=== PATIENT | male | born 1960 | race Caucasian/White ===

== ENCOUNTER 2024-02-25 04:24 | Inpatient (IN) | payer MEDICAID, OTHER ==
[~2024-02-25] VITALS: Ht 190.5 cm; Wt 115.2 kg
[~2024-02-25 04:24] MED LIST: AMLO1TAB23 PO; CYCL-839 PO; ENAL1TAB47 PO; MELO7.5T7 PO; TAMS0.4C39 PO
--- NOTE | 2024-02-25 04:37 | ED.PDOC ---
HPI Comments 63-year-old male brought in by EMS presents to the ED with a chief complaint of abdominal pain x 3 days. Patient states that his pain is localized to his epigastric region, non-radiating, describes as pressure/sharp. Patient denies any nausea, vomiting, or diarrhea. Patient was seen at [facility] and had elevated troponin at 0.41, however, patient denies any active chest pain. Patient was transferred to this hospital for higher level of care. Chief Complaint: Abdominal Pain Time Seen by MD: 04:35 Reviewed Notes: Medications, Allergies Allergies: Coded Allergies: Moxifloxacin (Verified Allergy, Unknown, 02/25/24) Information Source: Emergency Med Personnel Mode of Arrival: EMS Severity: Moderate Timing: Minutes Duration: Since onset Prehospital treatment: Treatment (Heparin Drip ) Past Medical History PAST MEDICAL HISTORY: Denies Surgical History: Denies all surgeries Family History Family History: Reviewed,noncontributory to illness Social History Smoker: Non-Smoker Alcohol: Denies ETOH Use Drugs: Denies Drug Use Lives In: Home Constitutional: denies: chills, diaphoresis, fatigue, fever, malaise, sweats, weakness, others EENTM: denies: blurred vision, double vision, ear bleeding, ear discharge, ear drainage, ear pain, ear ringing, eye pain, eye redness, hearing loss, mouth pain, mouth swelling, nasal discharge, nose bleeding, nose congestion, nose pain, photophobia, tearing, throat pain, throat swelling, voice changes, others Respiratory: denies: cough, hemoptysis, orthopnea, SOB at rest, shortness of breath, SOB with excertion, stridor, wheezing, others Cardiovascular: denies: chest pain, dizzy spells, diaphoresis, Dyspnea on exertion, edema, irregular heart beat, left arm pain, lightheadedness, palpitations, PND, syncope, others Gastrointestinal: reports: abdominal pain; denies: abdomen distended, blood streaked bowels, constipated, diarrhea, dysphagia, difficulty swallowing, hematemesis, melena, nausea, poor appetite, poor fluid intake, rectal bleeding, rectal pain, vomiting, others Genitourinary: denies: burning, dysuria, flank pain, frequency, hematuria, incontinence, penile discharge, penile sore, pain, testicle pain, testicle swelling, urgency, others Neurological: denies: dizziness, fainting, headache, left sided numbness, left sided weakness, numbness, paresthesia, pre-existing deficit, right sided numbness, right sided weakness, seizure, speech problems, tingling, tremors, wea kness, others Musculoskeletal: denies: back pain, gout, joint pain, joint swelling, muscle pain, muscle stiffness, neck pain, others Integumetry: denies: bruises, change in color, change in hair/nails, dryness, l aceration, lesions, lumps, rash, wounds, others Allergic/Immunocompromised: denies: Difficulty Healing, Frequent Infections, Hives, Itching, others Hematologic/Lymphatic: denies: anemia, blood clots, easy bleeding, easy bruising, swollen glands, others Endocrine: denies: excessive hunger, excessive sweating, excessive thirst, excessive urination, flushing, intolerance to cold, intolerance to heat, unexplained weight gain, unexplained weight loss, others Psychiatric: denies: anxiety, bipolar disorder, depression, hopeless, panic disorder, schizophrenia, sleepless, suicidal, others All Other Systems: Reviewed and Negative Physical Exam General Appearance: Moderate Distress, Normal HEENT: Normal ENT Inspection, Pharynx Normal, TMs Normal Neck: Full Range of Motion, Non-Tender, Normal, Normal Inspection Respiratory: Chest Non-Tender, Lungs Clear, No Accessory Muscle Use, No Respiratory Distress, Normal Breath Sounds Cardiovascular: No Edema, No JVD, No Murmur, No Gallop, Normal Peripheral Pulses, Regular Rate/Rhythm Breast Exam: Deferred Gastrointestinal: No Organomegaly, Non Tender, No Pulsatile Mass, Normal Bowel Sounds, Soft Genitalia: Deferred Pelvic: Deferred Rectal: Deferred Extremities: No calf tenderness, Normal capillary refill, Normal inspection, Normal range of motion, Non-tender, No pedal edema Musculoskeletal : Apperance: Normal Neurologic: Alert, surgical supply assistant II-XII nml as Tested, No Motor Deficits, Normal Affect, Normal Mood, No Sensory Deficits Cerebellar Function: Normal Reflexes: Normal Skin: Dry, Normal Color, Warm Lymphatic: No Adenopathy Was a procedure done? Was a procedure done?: No CP Differential Dx Differential Diagnosis: A-fib, Angina, Electrolyte Disorder, Heart Failure, MAT, OH, Sinus Tachycardia, V-Fib X-Ray, Labs, Meds, VS Vital Signs Date Time Temp Pulse Resp B/P (MAP) Pulse Ox O2 Delivery O2 Flow Rate FiO2 02/25/24 04:31 98.3 95 16 130/95 (107) 94 02/25/24 04:30 100 Troponin from [facility] was 0.3 and 0.4. The patient was placed on heparin drip and transferred to our hospital by Mulu Clemente, nurse practitioner. She will be admitted to our hospital for further evaluation and care. Time of 1ST Reevaluation: 05:05 Reevaluation 1ST: Unchanged Patient Education/Counseling: Diagnosis, Treatment, Prognosis Family Education/Counseling: No Family Present Departure 1 Departure Time of Disposition: 04:52 Impression: Primary Impression: Non-STEMI (non-ST elevated myocardial infarction) Disposition: ADMITTED INPATIENT Admit to: [facility] Condition: Guarded Critical Care Note Critical Care Time?: Yes (35 min-critical care time only) Stability Stability form required: No Heart Score Heart Score: Heart Score Response (Comments) Value History Highly Suspicious 2 EKG N/A 0 Age 45-64 1 Risk Factors >3 or Hx ASHD 2 Troponin >3 x's Normal limit 2 Total 7 I personally scribed for BENJI FARRIS MD ([email or web address]) on 02/25/24 at 04:37. Electronically submitted by Dimitris Elias ([email or web address]). I personally scribed for BENJI FARRIS MD ([email or web address]) on 02/25/24 at 04:50. Electronically submitted by Dimitris Elias ([email or web address]). BENJI FARRIS MD Feb 25, 2024 04:37
[2024-02-25] MEDS ORDERED: MORPHINE SULFATE 4 MG/ML SYR/VIAL IV ONE (05:00)
[2024-02-25] MEDS: ONDANSETRON HCL 4 MG/2 ML VIAL IV ONE (05:14)
[2024-02-25] MEDS: fentaNYL CITRATE 100 MCG/2 ML VL IV ONE (05:15)
[2024-02-25 05:38] LABS: Basophils # (auto) 0 10 ^3/uL (0-0.2); Basophils % (auto) 0.2 % (0.0-2.0); Eosinophils # (auto) 0.1 10 ^3/uL (0-0.8); Eosinophils % (auto) 0.8 % (0.0-7.0); Hematocrit 44.2 % (41.0-53.0); Hemoglobin 14.9 g/dL (13.5-17.5); Lymphocytes # (auto) 2.3 10 ^3/uL (0.4-5.4); Lymphocytes % (auto) 21.9 % (10.0-50.0); Mean Corpuscular Hemoglobin 32.8 pg (28.0-32.0); Mean Corpuscular Hgb Conc. 33.8 g/dL (32.0-36.0); Monocytes # (auto) 1.2 10 ^3/uL (0-1.3); Monocytes % (auto) 11.3 % (0.0-12.0); Neutrophils # (auto) 6.9 10 ^3/uL (1.6-8.6); Neutrophils % (auto) 65.8 % (37.0-80.0); Platelet Count (auto) 216 10^3/uL (140-450); Red Blood Cells 4.56 10^6/uL (4.5-5.90); White Blood Cell 10.5 10^3/uL (4.4-10.8)
[2024-02-25 05:57] LABS: Alanine Aminotransferase 50 U/L (7-40); Alkaline Phosphatase 43 U/L (46-116); Anion Gap 9 (5-15); Aspartate Aminotransferase 28 U/L (13-40); BUN/Creatinine Ratio 13.3 (10.0-20.0); Blood Urea Nitrogen 12 mg/dL (9-23); Calcium 8.7 mg/dL (8.7-10.4); Carbon Dioxide 21 mmol/L (20-31); Chloride 109 mmol/L (98-107); Glucose 121 mg/dL (74-106); Magnesium 1.9 mg/dL (1.6-2.6); Potassium 3.8 mmol/L (3.5-5.1); Sodium 139 mmol/L (136-145)
--- NOTE | 2024-02-25 05:57 | DVH ---
CHEST RADIOGRAPH Indication:nstemi Technique: Single frontal view of the chest was obtained COMPARISON: None FINDINGS: Lines and Tubes: None Lungs: Mild congestion Pleura: No effusion. No pneumothorax. Cardiomediastinal contours: Cardiomegaly Bones: Unremarkable IMPRESSION: Mild congestion
[2024-02-25 05:58] LABS: Bilirubin, Total 0.5 mg/dL (0.2-1.0); Total Protein 6.1 g/dL (5.7-8.2)
[2024-02-25] MEDS ORDERED: NITROGLYCERIN 0.4 MG SL TAB SL PRN (06:00)
[2024-02-25] MEDS ORDERED: HEPARIN SODIUM (PORCINE) 5000 UNITS/ML 1ML VIAL IV ONE (06:00)
[2024-02-25] MEDS ORDERED: ONDANSETRON HCL 4 MG/2 ML VIAL IV PRN (06:00)
[2024-02-25] MEDS ORDERED: HYDROcodone-ACET 5/325MG TAB PO PRN (06:00)
[2024-02-25] MEDS ORDERED: MORPHINE SULFATE INJ 2 MG/ml SYRG IV PRN (06:00)
[2024-02-25 06:08] LABS: INR 1.11 (0.9-1.15); Partial Thromboplastin Time 63.7 SEC (24.5-34.5); Prothrombin Time 11.7 sec (9.3-11.8)
--- NOTE | 2024-02-25 06:09 | PRN ---
Misceleneous Note Note Note Mr. Hank Garcia [place] ED [place] [facility] [place] [facility] [place], CT abdomen and pelvis with no evidence of acute abnormality, mild distal colonic diverticulosis, mild hepatomegaly with hepatic steatosis, mild prostomegaly. Patient with Troponin levels of 0.300, 0.410 with epigastric pain radiating to back and abdomen. Patient started on Heparin drip per [facility] pharmacy protocol , ASA, Statin , [place] [facility] [place] GABY BECKFORD MERCHANDISER SEASONAL Feb 25, 2024 06:09
[2024-02-25] MEDS: HEPARIN DRIP/D5W 100UNITS/ML 250 ML IV SCH (06:53)
--- NOTE | 2024-02-25 07:48 | DVH ---
ULTRASOUND ABDOMEN COMPLETE INDICATION: Pain. TECHNIQUE: Multiple real-time sonographic images of the abdomen were obtained. COMPARISON: None FINDINGS: The visualized liver parenchyma appears diffusely echogenic consistent with steatosis. . The liver measures 21.3 cm. No discrete hepatic lesion or intrahepatic biliary ductal dilatation is ident ified. There is no evidence of gallstones, gallbladder wall thickening or pericholecystic fluid. The common biliary duct is not dilated. The right kidney measures 11.4 cm length. The left kidney measures 11.5 cm. There is a 1.5 cm right upper pole renal cysts. No sonographic evidence of nephrolithiasis or hydronephrosis. The spleen measures 11.1 cm and appears within normal limits. Abdominal aorta, IVC and Pancreas are obscured by bowel gas. IMPRESSION: 1. Hepatic steatosis. 2. 1.5 cm right upper pole renal cyst. HS:Y
[2024-02-25 08:00] VITALS: PULSE 91; RESP 20; O2SAT 94
--- NOTE | 2024-02-25 09:02 | ECG ---
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
[2024-02-25 09:25] LABS: Urine Bacteria None Seen /hpf (None Seen)
[2024-02-25] MEDS: SODIUM CHLORIDE 0.9% 1,000 ML IV ONE (09:29)
[2024-02-25 09:34] LABS: Urine Blood Negative /uL (Negative); Urine Budding Yeast OCCASIONAL /hpf (None Seen); Urine Clarity Clear (Clear); Urine Color Yellow (Yellow); Urine Mucus FEW (None Seen); Urine Protein, UAD TRACE (Negative); Urine Urobilinogen Normal (Negative); Urine WBC 1 /hpf (0 - 3); Urine pH 5.5 (5.0-9.0)
[2024-02-25 09:37] LABS: Magnesium 2.1 mg/dL (1.6-2.6)
[2024-02-25 09:38] LABS: Phosphorus 2.6 mg/dL (2.4-5.1)
[2024-02-25 09:46] LABS: Amphetamine Screen, Urine Neg (NEGATIVE); Barbiturate Scree,Urine Neg (NEGATIVE); Benzodiazephine Screen, Urine Neg (NEGATIVE); Cannabinoid Screen, Urine Neg (NEGATIVE); Cocaine Screen, Urine Neg (NEGATIVE); Opiate Scree,Urine Pos (NEGATIVE)
[2024-02-25 09:47] LABS: Phencyclidine Screen, Urine Neg (NEGATIVE)
[2024-02-25] MEDS: PANTOPRAZOLE 40 MG/10 ML VIAL INJ IV SCH ×2 (10:44→21:14)
[2024-02-25] MEDS: ASPirin-EC 81 mg tab PO SCH (10:44)
--- NOTE | 2024-02-25 12:02 | DVHINCON2 ---
GI Consult Consult Note GI consult note Date of Consultation: 02/25/2024 Chief Complaint: Abdominal pain Referring Physician: Bryn DELGADO H&P: 63-year-old male transferred from [facility] for higher level of care for non-STEMI Patient also complaining of epigastric abdominal pain, for last four days, worse after eating certain foods No nausea. Or vomiting no hematemesis. No history of GERD symptoms Patient complains of loose stool, on Friday and Friday about 6-7 episodes. Brown in color. No melena or red blood in stool No EGD or colonoscopy in past Patient CT 02/24/2024 shows mild diverticulosis, and hepatic steatosis. Done at [facility] Patient is on aspirin now Patient is being evaluated by Cardiology Past Medical History: Denies Past Surgical History: Denies Social History: NO smoking, drinking ETOH and use of illegal drugs. Family History: Noncontributory Review of Systems: Constitutional: no fever, chill, weight loss HEENT: no eye pain, no hearing loss, no oral lesion, no scleral icterus Heart: no chest pain, no chest pressure Lung: no cough, no dyspnea with exertion Abdomen: see HPI Physical exam: General: NAD, AAOX3 Chest: lung donaldson clear to auscultation Heart: RRR, no murmur Abdomen: + epigastric tenderness to palpation, +BS Labs: Labs Test 02/25/24 09:13 02/25/24 09:00 02/25/24 08:12 02/25/24 05:08 Range/Units Lactic Acid Level 1.4 0.4-2.0 mmol/L Urine Color Yellow Yellow Urine Clarity Clear Clear Urine pH 5.5 5.0-9.0 Urine Specific [place] 1.050 H 1.001-1.035 Urine Protein Trace H Negative Urine Ketones Negative Negative Urine Blood Negative Negative /uL Urine Nitrite Negative Negative Urine Bilirubin Negative Negative Urine Urobilinogen Normal Negative mg/dL Urine Leukocyte Esterase Negative Negative /uL Urine RBC 2 0 - 3 /hpf Urine WBC 1 0 - 3 /hpf Urine Squamous Epithelial Cells Few <5 /hpf Urine Bacteria None seen None Seen /hpf Urine Mucus Few None Seen Urine Yeast (Budding) Occasional None Seen /hpf Urine Glucose Normal Normal mg/dL Urine Opiates Screen Pos NEGATIVE Urine Fentanyl Screen Pos NEGATIVE Urine Barbiturates Screen Neg NEGATIVE Urine Phencyclidine Screen Neg NEGATIVE Urine Amphetamines Screen Neg NEGATIVE Urine Benzodiazepines Screen Neg NEGATIVE Urine Cocaine Screen Neg NEGATIVE Urine Cannabinoids Screen Neg NEGATIVE Phosphorus Level 2.6 2.4-5.1 mg/dL Magnesium Level 2.1 1.6-2.6 mg/dL Troponin I High Sensitivity 660 *H </=54 ng/L Triglycerides Level 107 < 150 mg/dL Cholesterol Level 102 < 200 mg/dL LDL Cholesterol 50 < 100 mg/dL HDL Cholesterol 42 40-59 mg/dL Thyroid Stimulating Hormone (TSH) 2.12 0.55-4.78 uIU/mL White Blood Count 10.5 4.4-10.8 10^3/uL Red Blood Count 4.56 4.5-5.90 10^6/uL Hemoglobin 14.9 13.5-17.5 g/dL Hematocrit 44.2 41.0-53.0 % Mean Corpuscular Volume 97.0 80.0-100.0 fL Mean Corpuscular Hemoglobin 32.8 H 28.0-32.0 pg Mean Corpuscular Hemoglobin Concent 33.8 32.0-36.0 g/dL Red Cell Distribution Width 14.0 11.8-14.3 % Platelet Count 216 140-450 10^3/uL Mean Platelet Volume 7.5 6.9-10.8 fL Neutrophils (%) (Auto) 65.8 37.0-80.0 % Lymphocytes (%) (Auto) 21.9 10.0-50.0 % Monocytes (%) (Auto) 11.3 0.0-12.0 % Eosinophils (%) (Auto) 0.8 0.0-7.0 % Basophils (%) (Auto) 0.2 0.0-2.0 % Neutrophils # (Auto) 6.9 1.6-8.6 10 ^3/uL Lymphocytes # (Auto) 2.3 0.4-5.4 10 ^3/uL Monocytes # (Auto) 1.2 0-1.3 10 ^3/uL Eosinophils # (Auto) 0.1 0-0.8 10 ^3/uL Basophils # (Auto) 0 0-0.2 10 ^3/uL Nucleated Red Blood Cells 0.0 % Prothrombin Time 11.7 9.3-11.8 sec Prothrombin Time INR 1.11 0.9-1.15 Activated Partial Thromboplast Time 63.7 H 24.5-34.5 SEC Sodium Level 139 136-145 mmol/L Potassium Level 3.8 3.5-5.1 mmol/L Chloride Level 109 H 98-107 mmol/L Carbon Dioxide Level 21 20-31 mmol/L Anion Gap 9 5-15 Blood Urea Nitrogen 12 9-23 mg/dL Creatinine 0.90 0.700-1.30 mg/dL Glomerular Filtration Rate Calc 97 >90 mL/min BUN/Creatinine Ratio 13.3 10.0-20.0 Serum Glucose 121 H 74-106 mg/dL Hemoglobin A1c 5.9 H <5.7 % A1C Calcium Level 8.7 8.7-10.4 mg/dL Total Bilirubin 0.5 0.2-1.0 mg/dL Aspartate Amino Transferase (AST) 28 13-40 U/L Alanine Aminotransferase (ALT) 50 H 7-40 U/L Alkaline Phosphatase 43 L 46-116 U/L B-Type Natriuretic Peptide 33.52 0-100 pg/mL Total Protein 6.1 5.7-8.2 g/dL Albumin 4.0 3.2-4.8 g/dL Lipase 32 12-53 U/L Vitamin B12 Level 750 211-911 pg/mL Vitamin D 25-Hydroxy 55.1 30.0-100 ng/mL Imaging: Abdominal ultrasound IMPRESSION: 1. Hepatic steatosis. 2. 1.5 cm right upper pole renal cyst. Assessment: NSTEMI Abdominal pain Diarrhea Hepatic steatosis Plan: Discussed with Dr. Burdick Patient undergoing cardiac evaluation Protonix and Carafate Clear liquid diet Stool for WBC, bacterial culture and C diff We will continue to monitor this patient Discussed plan with patient and RN Thank you for this consult Date of Service: Feb 25, 2024 Billing Provider: DELORES MARTE Common Visit Codes: CONSULT ONLY Consultation Codes: [id number] CONSULT <60MIN DELORES MARTE Feb 25, 2024 12:02
[2024-02-25 12:38] LABS: Triglycerides 89 mg/dL (< 150)
[2024-02-25 12:39] LABS: LDL Cholesterol 58 mg/dL (< 100)
[2024-02-25 12:40] LABS: Cholesterol 111 mg/dL (< 200); HDL Cholesterol 44 mg/dL (40-59)
--- NOTE | 2024-02-25 12:57 | DVHHP2 ---
History of Present Illness Reason for Visit: Epigastric/lower abdominal discomfort History of Present Illness This is a 63-year-old gentleman with a hypertensive heart disease came to [facility] Friday with complaints of right-sided abdominal pain. Described as as mainly in the epigastric/right upper quadrant region. Patient was apparently what he thinks ate some "bad" food on Friday. Friday he had some discomfort intermittently and yesterday he has pain was more constant therefore came to ER for further evaluation. In the ER patient was CT abdomen pelvis showed diverticulosis without any acute pathology. However he is cardiac markers troponin the elevated significantly. Therefore he was transferred to [facility] for cardiac evaluation and further management as appropriate. Currently patient indeed has a pain-free. Patient denied any associated nausea vomiting headache dizziness or lightheadedness. Denied any diarrhea or blood in stool. All other review of system to be normal. Cardiovascular: HTN Past Medical History Hypertension, obesity Past Surgical History: None Family History: Hypertension Smoke: No ALCOHOL: occassional Lives: with Family Review of Systems Review of Systems No shortness of breath no sweating headache dizziness or lightheadedness. No fevers chills or sweats. Normal bowel and bladder movements. Other review of system reviewed all normal. Allergies: Coded Allergies: Moxifloxacin (Verified Allergy, Unknown, 02/25/24) Medications Current Medications Medications Dose Ordered Sig/Boaz Route Start Time Stop Time Status Last Admin Dose Admin Aspirin 81 mg DAILY PO 02/25/24 10:00 02/25/24 10:44 81 MG Atorvastatin Calcium 40 mg HS PO 02/25/24 22:00 Acetaminophen/ Hydrocodone Bitart 1 tab Q6HPRN PRN PO 02/25/24 06:00 Acetaminophen 650 mg Q6HPRN PRN PO 02/25/24 06:00 Ondansetron HCl 4 mg Q6HPRN PRN IV 02/25/24 06:00 Nitroglycerin 0.4 mg Q5MINP PRN SL 02/25/24 06:00 Morphine Sulfate 2 mg Q30M PRN IV 02/25/24 06:00 Pantoprazole Sodium 40 mg BID IV 02/25/24 22:00 Sucralfate 1 gm BID@0600,2200 PO 02/25/24 22:00 Exam Vital Signs Vital Signs Date Time Temp Pulse Resp B/P (MAP) Pulse Ox O2 Delivery O2 Flow Rate FiO2 02/25/24 12:00 107 17 130/94 (106) 92 02/25/24 08:00 99.4 99.4 02/25/24 08:00 Room Air* 0 21 Exam Alert awake oriented x3. Comfortable in bed without any acute cardiopulmonary distress at present. HEENT neck supple no JVD pupils equal round react to light. Heart normal heart sounds regular rate and rhythm S1 plus S2. No audible murmurs or gallops. Lungs failure movement throughout the lung zones. Chest equal to expansion. No rales or wheezing. Abdomen is obese. Positive active bowel sounds. Nontender. No rebound or guarding. Extremities positive distal pedal pulses. No edema. Neurologically no focal deficits. Labs/Xrays Labs Test 02/25/24 09:13 02/25/24 09:00 02/25/24 08:12 02/25/24 05:08 Range/Units Lactic Acid Level 1.4 0.4-2.0 mmol/L Urine Color Yellow Yellow Urine Clarity Clear Clear Urine pH 5.5 5.0-9.0 Urine Specific [place] 1.050 H 1.001-1.035 Urine Protein Trace H Negative Urine Ketones Negative Negative Urine Blood Negative Negative /uL Urine Nitrite Negative Negative Urine Bilirubin Negative Negative Urine Urobilinogen Normal Negative mg/dL Urine Leukocyte Esterase Negative Negative /uL Urine RBC 2 0 - 3 /hpf Urine WBC 1 0 - 3 /hpf Urine Squamous Epithelial Cells Few <5 /hpf Urine Bacteria None seen None Seen /hpf Urine Mucus Few None Seen Urine Yeast (Budding) Occasional None Seen /hpf Urine Glucose Normal Normal mg/dL Urine Opiates Screen Pos NEGATIVE Urine Fentanyl Screen Pos NEGATIVE Urine Barbiturates Screen Neg NEGATIVE Urine Phencyclidine Screen Neg NEGATIVE Urine Amphetamines Screen Neg NEGATIVE Urine Benzodiazepines Screen Neg NEGATIVE Urine Cocaine Screen Neg NEGATIVE Urine Cannabinoids Screen Neg NEGATIVE Phosphorus Level 2.6 2.4-5.1 mg/dL Magnesium Level 2.1 1.6-2.6 mg/dL Troponin I High Sensitivity 660 *H </=54 ng/L Triglycerides Level 89 < 150 mg/dL Cholesterol Level 111 < 200 mg/dL LDL Cholesterol 58 < 100 mg/dL HDL Cholesterol 44 40-59 mg/dL Thyroid Stimulating Hormone (TSH) 2.12 0.55-4.78 uIU/mL White Blood Count 10.5 4.4-10.8 10^3/uL Red Blood Count 4.56 4.5-5.90 10^6/uL Hemoglobin 14.9 13.5-17.5 g/dL Hematocrit 44.2 41.0-53.0 % Mean Corpuscular Volume 97.0 80.0-100.0 fL Mean Corpuscular Hemoglobin 32.8 H 28.0-32.0 pg Mean Corpuscular Hemoglobin Concent 33.8 32.0-36.0 g/dL Red Cell Distribution Width 14.0 11.8-14.3 % Platelet Count 216 140-450 10^3/uL Mean Platelet Volume 7.5 6.9-10.8 fL Neutrophils (%) (Auto) 65.8 37.0-80.0 % Lymphocytes (%) (Auto) 21.9 10.0-50.0 % Monocytes (%) (Auto) 11.3 0.0-12.0 % Eosinophils (%) (Auto) 0.8 0.0-7.0 % Basophils (%) (Auto) 0.2 0.0-2.0 % Neutrophils # (Auto) 6.9 1.6-8.6 10 ^3/uL Lymphocytes # (Auto) 2.3 0.4-5.4 10 ^3/uL Monocytes # (Auto) 1.2 0-1.3 10 ^3/uL Eosinophils # (Auto) 0.1 0-0.8 10 ^3/uL Basophils # (Auto) 0 0-0.2 10 ^3/uL Nucleated Red Blood Cells 0.0 % Prothrombin Time 11.7 9.3-11.8 sec Prothrombin Time INR 1.11 0.9-1.15 Activated Partial Thromboplast Time 63.7 H 24.5-34.5 SEC Sodium Level 139 136-145 mmol/L Potassium Level 3.8 3.5-5.1 mmol/L Chloride Level 109 H 98-107 mmol/L Carbon Dioxide Level 21 20-31 mmol/L Anion Gap 9 5-15 Blood Urea Nitrogen 12 9-23 mg/dL Creatinine 0.90 0.700-1.30 mg/dL Glomerular Filtration Rate Calc 97 >90 mL/min BUN/Creatinine Ratio 13.3 10.0-20.0 Serum Glucose 121 H 74-106 mg/dL Hemoglobin A1c 5.9 H <5.7 % A1C Calcium Level 8.7 8.7-10.4 mg/dL Total Bilirubin 0.5 0.2-1.0 mg/dL Aspartate Amino Transferase (AST) 28 13-40 U/L Alanine Aminotransferase (ALT) 50 H 7-40 U/L Alkaline Phosphatase 43 L 46-116 U/L B-Type Natriuretic Peptide 33.52 0-100 pg/mL Total Protein 6.1 5.7-8.2 g/dL Albumin 4.0 3.2-4.8 g/dL Lipase 32 12-53 U/L Vitamin B12 Level 750 211-911 pg/mL Vitamin D 25-Hydroxy 55.1 30.0-100 ng/mL Assessment/Plan Assessment/Plan Epigastric/abdominal pain Elevated troponin possible non ST elevation [place] Hypertension Morbid obesity BMI 33 At resident patient was clinically stable. We will admit him to the hospital for cardiac evaluation. EKG does not show any acute ST-T changes. So far labs besides troponins are normal. Check his A1c levels and lipid panel. Resume his blood pressure medications. Clear liquid diet. GI consultation as well. 2D echocardiogram. Aspirin and started. Continue rest of supportive care and treatment as appropriate/has not needed. He clinical management will depend on his clinical course and recommendations from the consultants. Discussed with the patient at bedside regarding care plan. Plan discussed with: Patient, Other My Orders Orders - ELO MALLOY MD Procedure Category Date Status Time Basic Metabolic Panel LAB 02/26/24 Verified 04:00 Troponin-I Hs LAB 02/26/24 Verified 04:00 Troponin-I Hs LAB 02/25/24 Logged 15:17 * Cardiology Consult CONS 02/25/24 Transmitted 12:34 Enoxaparin Sodium PHA 02/26/24 Verified (Lovenox) 10:00 Problem List: (1) Non-STEMI (non-ST elevated myocardial infarction) ELO MALLOY MD Feb 25, 2024 12:57
--- NOTE | 2024-02-25 13:11 | DVHINCON2 ---
Allergies: Coded Allergies: Moxifloxacin (Verified Allergy, Unknown, 02/25/24) Current Medications Current Medications Medications (Trade) Dose Ordered Sig/Boaz Route PRN Reason Start Time Stop Time Status Last Admin Heparin Sodium/ Dextrose 250 ml @ 10 mls/hr Q24H IV 02/25/24 06:00 02/25/24 10:26 DC 02/25/24 06:53 Aspirin (Ecotrin Enteric Coated Tablet) 81 mg DAILY PO 02/25/24 10:00 02/25/24 10:44 Atorvastatin Calcium (Lipitor) 40 mg HS PO 02/25/24 22:00 Acetaminophen/ Hydrocodone Bitart ([place] 5/325MG Tab) 1 tab Q6HPRN PRN PO PAIN SCALE 1 THRU 6 02/25/24 06:00 Acetaminophen (Tylenol Tablet) 650 mg Q6HPRN PRN PO TEMP GREATER THAN 100.4 02/25/24 06:00 Pantoprazole Sodium (Protonix) 40 mg DAILY IV 02/25/24 10:00 02/25/24 11:21 DC 02/25/24 10:44 Ondansetron HCl (Zofran) 4 mg Q6HPRN PRN IV NAUSEA / VOMITING 02/25/24 06:00 Nitroglycerin (Ntrostat Sublingual) 0.4 mg Q5MINP PRN SL FOR CHEST PAIN 02/25/24 06:00 Morphine Sulfate 2 mg Q30M PRN IV FOR CHEST PAIN 02/25/24 06:00 Pantoprazole Sodium (Protonix) 40 mg BID IV 02/25/24 22:00 Sucralfate (Carafate Susp) 1 gm BID@0600,2200 PO 02/25/24 22:00 Enoxaparin Sodium (Lovenox) 40 mg DAILY SC 02/26/24 10:00 Amlodipine Besylate (Norvasc Tablet) 10 mg DAILY PO 02/26/24 10:00 UNV Vital Signs Vital Signs Date Time Temp Pulse Resp B/P (MAP) Pulse Ox O2 Delivery O2 Flow Rate FiO2 02/25/24 12:00 94 02/25/24 12:00 17 130/94 (106) 92 02/25/24 08:00 99.4 99.4 02/25/24 08:00 Room Air* 0 21 Labs/Diagnostic Data Labs Test 02/25/24 09:13 02/25/24 09:00 02/25/24 08:12 02/25/24 05:08 Range/Units Lactic Acid Level 1.4 0.4-2.0 mmol/L Urine Color Yellow Yellow Urine Clarity Clear Clear Urine pH 5.5 5.0-9.[address] 1.050 H 1.001-1.035 Urine Protein Trace H Negative Urine Ketones Negative Negative Urine Blood Negative Negative /uL Urine Nitrite Negative Negative Urine Bilirubin Negative Negative Urine Urobilinogen Normal Negative mg/dL Urine Leukocyte Esterase Negative Negative /uL Urine RBC 2 0 - 3 /hpf Urine WBC 1 0 - 3 /hpf Urine Squamous Epithelial Cells Few <5 /hpf Urine Bacteria None seen None Seen /hpf Urine Mucus Few None Seen Urine Yeast (Budding) Occasional None Seen /hpf Urine Glucose Normal Normal mg/dL Urine Opiates Screen Pos NEGATIVE Urine Fentanyl Screen Pos NEGATIVE Urine Barbiturates Screen Neg NEGATIVE Urine Phencyclidine Screen Neg NEGATIVE Urine Amphetamines Screen Neg NEGATIVE Urine Benzodiazepines Screen Neg NEGATIVE Urine Cocaine Screen Neg NEGATIVE Urine Cannabinoids Screen Neg NEGATIVE Phosphorus Level 2.6 2.4-5.1 mg/dL Magnesium Level 2.1 1.6-2.6 mg/dL Troponin I High Sensitivity 660 *H </=54 ng/L Triglycerides Level 89 < 150 mg/dL Cholesterol Level 111 < 200 mg/dL LDL Cholesterol 58 < 100 mg/dL HDL Cholesterol 44 40-59 mg/dL Thyroid Stimulating Hormone (TSH) 2.12 0.55-4.78 uIU/mL White Blood Count 10.5 4.4-10.8 10^3/uL Red Blood Count 4.56 4.5-5.90 10^6/uL Hemoglobin 14.9 13.5-17.5 g/dL Hematocrit 44.2 41.0-53.0 % Mean Corpuscular Volume 97.0 80.0-100.0 fL Mean Corpuscular Hemoglobin 32.8 H 28.0-32.0 pg Mean Corpuscular Hemoglobin Concent 33.8 32.0-36.0 g/dL Red Cell Distribution Width 14.0 11.8-14.3 % Platelet Count 216 140-450 10^3/uL Mean Platelet Volume 7.5 6.9-10.8 fL Neutrophils (%) (Auto) 65.8 37.0-80.0 % Lymphocytes (%) (Auto) 21.9 10.0-50.0 % Monocytes (%) (Auto) 11.3 0.0-12.0 % Eosinophils (%) (Auto) 0.8 0.0-7.0 % Basophils (%) (Auto) 0.2 0.0-2.0 % Neutrophils # (Auto) 6.9 1.6-8.6 10 ^3/uL Lymphocytes # (Auto) 2.3 0.4-5.4 10 ^3/uL Monocytes # (Auto) 1.2 0-1.3 10 ^3/uL Eosinophils # (Auto) 0.1 0-0.8 10 ^3/uL Basophils # (Auto) 0 0-0.2 10 ^3/uL Nucleated Red Blood Cells 0.0 % Prothrombin Time 11.7 9.3-11.8 sec Prothrombin Time INR 1.11 0.9-1.15 Activated Partial Thromboplast Time 63.7 H 24.5-34.5 SEC Sodium Level 139 136-145 mmol/L Potassium Level 3.8 3.5-5.1 mmol/L Chloride Level 109 H 98-107 mmol/L Carbon Dioxide Level 21 20-31 mmol/L Anion Gap 9 5-15 Blood Urea Nitrogen 12 9-23 mg/dL Creatinine 0.90 0.700-1.30 mg/dL Glomerular Filtration Rate Calc 97 >90 mL/min BUN/Creatinine Ratio 13.3 10.0-20.0 Serum Glucose 121 H 74-106 mg/dL Hemoglobin A1c 5.9 H <5.7 % A1C Calcium Level 8.7 8.7-10.4 mg/dL Total Bilirubin 0.5 0.2-1.0 mg/dL Aspartate Amino Transferase (AST) 28 13-40 U/L Alanine Aminotransferase (ALT) 50 H 7-40 U/L Alkaline Phosphatase 43 L 46-116 U/L B-Type Natriuretic Peptide 33.52 0-100 pg/mL Total Protein 6.1 5.7-8.2 g/dL Albumin 4.0 3.2-4.8 g/dL Lipase 32 12-53 U/L Vitamin B12 Level 750 211-911 pg/mL Vitamin D 25-Hydroxy 55.1 30.0-100 ng/mL PATRICIA LEGGETT MD Feb 25, 2024 13:11
[2024-02-25] MEDS: amLODIPine BESYLATE 5 MG TAB PO ONE (13:31)
[2024-02-25 17:59] VITALS: BP 132/78; PULSE 80; RESP 18; TEMP 98.2; O2SAT 98
[2024-02-25 20:00] VITALS: PULSE 96
[2024-02-25 21:00] VITALS: BP 123/69; PULSE 91; RESP 17; TEMP 98.5; O2SAT 96
[2024-02-25] MEDS: ATORVASTATIN 20 MG TAB PO SCH (21:15)
[2024-02-25] MEDS: SUCRALFATE 1 GM/10 ML ORAL SUSP PO SCH (21:16)
[2024-02-26] VITALS (7 sets, daily range): BP systolic 111–143; BP diastolic 74–91; PULSE 62–105; RESP 17–20; TEMP 97.8–98.6; O2SAT 94–98
[2024-02-26 05:26] LABS: Chloride 109 mmol/L (98-107); Sodium 141 mmol/L (136-145)
[2024-02-26 05:27] LABS: Anion Gap 9 (5-15); Carbon Dioxide 23 mmol/L (20-31)
[2024-02-26 05:32] LABS: BUN/Creatinine Ratio 10.1 (10.0-20.0); Blood Urea Nitrogen 9 mg/dL (9-23); Glucose 112 mg/dL (74-106)
[2024-02-26] MEDS: ENOXAPARIN SOD 40 MG/0.4 ML SYRINGE SC SCH (10:00)
[2024-02-26] MEDS: amLODIPine BESYLATE 5 MG TAB PO SCH (10:00)
--- NOTE | 2024-02-26 10:08 | DVHSR ---
APPROVED REPORT EXAM: Two-dimensional and M-mode echocardiogram with Doppler and color Doppler. Blood Pressure: 129/87 mmHg INDICATION Elevated Trops RISK FACTORS Height: 73, Weight: 250 DIMENSIONS LVDd4.5 (3.8-5.7cm)LA (2D) (1.9-4.0cm)Aortic Root4.0 (2.0-3.7cm) LVDs3.5 (2.5-4.0cm)LA (MM) (1.9-4.0cm)Aortic Cusp Exc2.1 (1.5-2.0cm) EF (%) 45.0 (55-70%)Rt. Atrium (1.9-4.0cm)Asc. Aorta cm Mitral Valve MitralMitral Stenosis E wave0.69m/sMV Mean GR.mmHg A wave0.58m/sMV Peak GR.20mmHg E/A ratio1.22D MVAcm2 DECEL [id number] 1/2 Timems Aortic Valve Aortic ValveAortic Stenosis V10.79m/Silverio Mean GR.2mmHg V20.95m/Silverio Peak GR.4mmHg LVOT Diameter2.5 (1.8-2.4cm)Doppler AVA4.08cm2 Pulmonic Valve V20.89m/s Other Information Technically limited study due to body habitus and patient position. Conclusion very limited study limited image qualty lvef 45% abnormal septal motion moderate LVH
[2024-02-26] MEDS: IODIXANOL 320MG/ML 100ML BTL IV ONE (10:15)
[2024-02-26] MEDS: HEPARIN IN NS 1000Units/500mL 0 ML ONE (10:15)
--- NOTE | 2024-02-26 10:22 | DVHINCON2 ---
Date of service: Feb 26, 2024 History of Present Illness 63 yo M morbidly obese, htn, admitted for nstemi. pt was tx here for furtehr eval. pt has mainly abd pain. pt was seen by GI "i have a history of heart problems going to the when my heart went up to 220" Past Medical History reviewed Family History: Patient reports no known family medical history. Allergies: Coded Allergies: Moxifloxacin (Verified Allergy, Unknown, 02/25/24) Current Medications Current Medications Medications (Trade) Dose Ordered Sig/Boaz Route PRN Reason Start Time Stop Time Status Last Admin Atorvastatin Calcium (Lipitor) 40 mg HS PO 02/25/24 22:00 02/25/24 21:15 Pantoprazole Sodium (Protonix) 40 mg BID IV 02/25/24 22:00 02/25/24 21:14 Sucralfate (Carafate Susp) 1 gm BID@0600,2200 PO 02/25/24 22:00 Enoxaparin Sodium (Lovenox) 40 mg DAILY SC 02/26/24 10:00 Amlodipine Besylate (Norvasc Tablet) 10 mg DAILY PO 02/26/24 10:00 Review of Systems 10 pt ros otherwise negative Vital Signs Vital Signs Date Time Temp Pulse Resp B/P (MAP) Pulse Ox O2 Delivery O2 Flow Rate FiO2 02/26/24 08:00 Room Air* 0 21 02/26/24 05:00 98.4 87 17 111/79 (90) 94 98.4 Physical Exam nad s1 s2 rrr ctab soft nt/nd no edema Labs/Diagnostic Data Labs Test 02/26/24 04:39 02/26/24 04:34 02/25/24 09:13 02/25/24 09:00 Range/Units Troponin I High Sensitivity 341 *H </=54 ng/L Sodium Level 141 136-145 mmol/L Potassium Level 4.0 3.5-5.1 mmol/L Chloride Level 109 H 98-107 mmol/L Carbon Dioxide Level 23 20-31 mmol/L Anion Gap 9 5-15 Blood Urea Nitrogen 9 9-23 mg/dL Creatinine 0.89 0.700-1.30 mg/dL Glomerular Filtration Rate Calc 97 >90 mL/min BUN/Creatinine Ratio 10.1 10.0-20.0 Serum Glucose 112 H 74-106 mg/dL Calcium Level 9.0 8.7-10.4 mg/dL Lactic Acid Level 1.4 0.4-2.0 mmol/L Urine Color Yellow Yellow Urine Clarity Clear Clear Urine pH 5.5 5.0-9.0 Urine Specific [place] 1.050 H 1.001-1.035 Urine Protein Trace H Negative Urine Ketones Negative Negative Urine Blood Negative Negative /uL Urine Nitrite Negative Negative Urine Bilirubin Negative Negative Urine Urobilinogen Normal Negative mg/dL Urine Leukocyte Esterase Negative Negative /uL Urine RBC 2 0 - 3 /hpf Urine WBC 1 0 - 3 /hpf Urine Squamous Epithelial Cells Few <5 /hpf Urine Bacteria None seen None Seen /hpf Urine Mucus Few None Seen Urine Yeast (Budding) Occasional None Seen /hpf Urine Glucose Normal Normal mg/dL Urine Opiates Screen Pos NEGATIVE Urine Fentanyl Screen Pos NEGATIVE Urine Barbiturates Screen Neg NEGATIVE Urine Phencyclidine Screen Neg NEGATIVE Urine Amphetamines Screen Neg NEGATIVE Urine Benzodiazepines Screen Neg NEGATIVE Urine Cocaine Screen Neg NEGATIVE Urine Cannabinoids Screen Neg NEGATIVE Test 02/25/24 08:12 02/25/24 05:08 Range/Units Phosphorus Level 2.6 2.4-5.1 mg/dL Magnesium Level 2.1 1.6-2.6 mg/dL Triglycerides Level 89 < 150 mg/dL Cholesterol Level 111 < 200 mg/dL LDL Cholesterol 58 < 100 mg/dL HDL Cholesterol 44 40-59 mg/dL Thyroid Stimulating Hormone (TSH) 2.12 0.55-4.78 uIU/mL White Blood Count 10.5 4.4-10.8 10^3/uL Red Blood Count 4.56 4.5-5.90 10^6/uL Hemoglobin 14.9 13.5-17.5 g/dL Hematocrit 44.2 41.0-53.0 % Mean Corpuscular Volume 97.0 80.0-100.0 fL Mean Corpuscular Hemoglobin 32.8 H 28.0-32.0 pg Mean Corpuscular Hemoglobin Concent 33.8 32.0-36.0 g/dL Red Cell Distribution Width 14.0 11.8-14.3 % Platelet Count 216 140-450 10^3/uL Mean Platelet Volume 7.5 6.9-10.8 fL Neutrophils (%) (Auto) 65.8 37.0-80.0 % Lymphocytes (%) (Auto) 21.9 10.0-50.0 % Monocytes (%) (Auto) 11.3 0.0-12.0 % Eosinophils (%) (Auto) 0.8 0.0-7.0 % Basophils (%) (Auto) 0.2 0.0-2.0 % Neutrophils # (Auto) 6.9 1.6-8.6 10 ^3/uL Lymphocytes # (Auto) 2.3 0.4-5.4 10 ^3/uL Monocytes # (Auto) 1.2 0-1.3 10 ^3/uL Eosinophils # (Auto) 0.1 0-0.8 10 ^3/uL Basophils # (Auto) 0 0-0.2 10 ^3/uL Nucleated Red Blood Cells 0.0 % Prothrombin Time 11.7 9.3-11.8 sec Prothrombin Time INR 1.11 0.9-1.15 Activated Partial Thromboplast Time 63.7 H 24.5-34.5 SEC Hemoglobin A1c 5.9 H <5.7 % A1C Total Bilirubin 0.5 0.2-1.0 mg/dL Aspartate Amino Transferase (AST) 28 13-40 U/L Alanine Aminotransferase (ALT) 50 H 7-40 U/L Alkaline Phosphatase 43 L 46-116 U/L B-Type Natriuretic Peptide 33.52 0-100 pg/mL Total Protein 6.1 5.7-8.2 g/dL Albumin 4.0 3.2-4.8 g/dL Lipase 32 12-53 U/L Vitamin B12 Level 750 211-911 pg/mL Vitamin D 25-Hydroxy 55.1 30.0-100 ng/mL Assessment nstemi WMA on echo obesity morbid abd pain fatty liver Plan/Recommendation had very long informed discussion with patient discussing risks benefits and alternatives "i dont need this procedure" pt feels its not indicated at this time due to his lack of symptoms pt states his recent supplement has caused this cancel [facility] asa, statin if feasible risk factor modification fu GI recs i will sign off. if pt wishes for 2nd opinion can consult another cards Plan discussed with: Patient BETSEYPATRICIA Carlos MD Feb 26, 2024 10:22
[2024-02-26] MEDS ORDERED: LATA0.008 RIGHTEYE (10:33)
--- NOTE | 2024-02-26 12:52 | DVHPN2 ---
Progress Note - Dictate Date Seen: Feb 26, 2024 Medical Necessity Reason Pt with a Central, PICC or Fol: No Subjective Patient is clinically stable. Evaluated by Dr. Pascal for heart catheterization however it is not done due to apparent miscommunication between the patient and the small engine technician. Pain-free at present. Patient noted to be in paroxysmal atrial fibrillation. vital signs Vital Sign Date Time Temp Pulse Resp B/P (MAP) Pulse Ox O2 Delivery O2 Flow Rate FiO2 02/26/24 09:00 97.8 93 20 136/84 (101) 98 97.8 02/26/24 08:00 Room Air* 0 21 Total Intake and Output 02/25/24 02/25/24 02/26/24 15:00 23:00 07:00 Intake Total 700 ml Balance 700 ml medications Current Medications Medications Dose Ordered Sig/Boaz Route Start Time Stop Time Status Last Admin Dose Admin Aspirin 81 mg DAILY PO 02/25/24 10:00 02/25/24 10:44 81 MG Atorvastatin Calcium 40 mg HS PO 02/25/24 22:00 02/25/24 21:15 40 MG Acetaminophen/ Hydrocodone Bitart 1 tab Q6HPRN PRN PO 02/25/24 06:00 Acetaminophen 650 mg Q6HPRN PRN PO 02/25/24 06:00 Ondansetron HCl 4 mg Q6HPRN PRN IV 02/25/24 06:00 Nitroglycerin 0.4 mg Q5MINP PRN SL 02/25/24 06:00 Morphine Sulfate 2 mg Q30M PRN IV 02/25/24 06:00 Pantoprazole Sodium 40 mg BID IV 02/25/24 22:00 02/25/24 21:14 40 MG Sucralfate 1 gm BID@0600,2200 PO 02/25/24 22:00 Enoxaparin Sodium 40 mg DAILY SC 02/26/24 10:00 Metoprolol Succinate 25 mg DAILY PO 02/27/24 10:00 objective Alert awake oriented x3. Family at bedside. HEENT neck supple no JVD. Heart regular rate and rhythm S1 plus S2. Lungs fair air movement without rales or wheezes. Abdomen soft obese positive bowel sounds. Nontender. Extremities no edema. laboratory and microbiology Laboratory Tests 02/26/24 04:34 02/25/24 05:08 Test 02/26/24 04:34 Range/Units Serum Glucose 112 H 74-106 mg/dL Assessment/Plan We will have a another small engine technician for 2nd opinion and to possibly consider left heart catheterization tomorrow. Meantime I will DC his amlodipine. I will start him on beta joyce for heart rate control given AFib. Once cardiac workup is done we will start him on anticoagulation for stroke prevention. I have discussed with the patient/family/nurse at bedside regarding his hospital diagnosis, study results, care plan and further management. They have verbalized understanding of this and agree with the ongoing plan of care as mentioned. Problems(with codes): (1) Non-STEMI (non-ST elevated myocardial infarction) Plan discussed with: Patient, Other ELO MALLOY MD Feb 26, 2024 12:52
[2024-02-26] MEDS: FUROSEMIDE 20 MG/2 ML VIAL IV ONE (15:45)
[2024-02-26] MEDS: ENOXAPARIN SOD 120 MG/0.8 ML SYRINGE SC ONE (15:45)
--- NOTE | 2024-02-26 15:48 | DVHINCON2 ---
Date Seen: Feb 26, 2024 Referring Physician MD Rojelio Reason for Consultation NSTEMI History of Present Illness This is a 63-year-old man who presented to the emergency room via EMS with a chief complaint of epigastric pain for three days. The patient complains of epigastric pain associated with intermittent episodes of dizziness and dyspnea on exertion prompting him to seek further medical attention. He [facility] to [facility] and transferred to this facility for HLOC given trending troponin levels. Denies chest pain, palpitations, diaphoresis, or syncopal events. Troponin levels peaked in the 700s ng/L. He underwent a 12 lead electrocardiogram revealing a sinus rhythm with PACs. At time of assessment, the patient was found in an atrial fibrillation rhythm in the 110s bpm. Denies a previous history of atrial fibrillation or following up with a manager business planning. Reports an event of tachycardia with a HR up to the 200s bpm where he underwent pharmacological cardioversion 10 years ago. At that time he was advised to follow-up with a manager business planning to rule out WPW. States he underwent follow-up work-up without findings of WPW. Other medical history includes hypertension, benign prostatic hyperplasia, and obesity. Past Medical History Past medical history reviewed. No other significant than mentioned above. Past Surgical History Past surgical history reviewed. No other significant than mentioned above. Family History: Patient reports no known family medical history. Family History Family history reviewed. Social History Denies the use of illicit drugs or tobacco use. Admits to occasional alcohol use. Allergies: Coded Allergies: Moxifloxacin (Verified Allergy, Unknown, 02/25/24) Home Meds Reported Medications Meloxicam (Meloxicam) 7.5 Mg Tab, 1 TAB PO DAILY for 90 Days, #90 02/26/24 Enalapril Maleate (Enalapril Maleate) 10 Mg Tab, 1 TAB PO DAILY for 90 Days, #90 02/26/24 Latanoprost (LATANOPROST) 0.005 % Melba, 1 DROP RIGHTEYE QPM for 100 Days, #5 02/26/24 Tamsulosin Hcl (Tamsulosin Hcl) 0.4 Mg Cap, 1 CAP PO DAILY for 90 Days, #90 02/26/24 Amlodipine Besylate (Amlodipine Besylate) 10 Mg Tab, 1 TAB PO DAILY for 90 Days, #02/26/24 Cyclobenzaprine Hcl (Cyclobenzaprine Hcl) 10 Mg Tab, 1 TAB PO DAILY for 30 Days, #30 02/26/24 Home Meds Home medications reviewed. Current Medications Current Medications Medications (Trade) Dose Ordered Sig/Boaz Route PRN Reason Start Time Stop Time Status Last Admin Atorvastatin Calcium (Lipitor) 40 mg HS PO 02/25/24 22:00 02/25/24 21:15 Pantoprazole Sodium (Protonix) 40 mg BID IV 02/25/24 22:00 02/25/24 21:14 Sucralfate (Carafate Susp) 1 gm BID@0600,2200 PO 02/25/24 22:00 Enoxaparin Sodium (Lovenox) 40 mg DAILY SC 02/26/24 10:00 Amlodipine Besylate (Norvasc Tablet) 10 mg DAILY PO 02/26/24 10:00 02/26/24 12:29 DC Metoprolol Succinate (Toprol Xl) 25 mg DAILY PO 02/27/24 10:00 Apixaban (Eliquis) 5 mg BID PO 02/26/24 22:00 02/26/24 12:48 DC Review of Systems Constitutional: No symptom reported Ears, Nose, & Throat: No symptom reported Eyes: No symptom reported Neurological: Dizziness Pulmonary/Respiratory: CHAVEZ Cardiovascular: No symptom reported Gastrointestinal: Epigastric pain Genitourinary: No symptom reported Musculoskeletal: No symptom reported Skin: No symptom reported Psychiatric: No symptom reported Endocrine: No symptom reported Hemotologic/Lymphatic: No symptom reported Vital Signs Vital Signs Date Time Temp Pulse Resp B/P (MAP) Pulse Ox O2 Delivery O2 Flow Rate FiO2 02/26/24 13:00 98.3 105 18 128/74 (92) 97 98.3 02/26/24 08:00 Room Air* 0 21 Physical Exam General Appearance: Cooperative. Well developed. Obese. In no acute distress Head Exam: Normal inspection Neck Exam: Normal inspection. Non-tender. Normal alignment Pulmonary/Respiratory: Chest non-tender. Diminished bilateral breath sounds Cardiovascular/Chest: Rhythm irregular rate and rhythm. Atrial fibrillation 110s bpm. No murmurs. No JVD. Peripheral Pulses: 2+ Radial (R). 2+ Radial (L). 2+ Pedal (R). 2+ Pedal (L) Abdominal Exam: Normal bowel sounds. Soft. Nontender. No hepatospenomegaly. No masses Ankle Exam: Negative ankle edema Lower extremities: Negative lower extremity edema Neuro/Mental Status: A&O x4. Coherent Thoughts/Psych: Normal thought pattern. Appropriate mood and affect. Good judgement and insight Appearance: In no acute distress Skin Exam: Normal inspection. Normal color. Warm. Dry Labs/Diagnostic Data Labs Test 02/26/24 04:39 02/26/24 04:34 02/25/24 09:13 02/25/24 09:00 Range/Units Troponin I High Sensitivity 341 *H </=54 ng/L Sodium Level 141 136-145 mmol/L Potassium Level 4.0 3.5-5.1 mmol/L Chloride Level 109 H 98-107 mmol/L Carbon Dioxide Level 23 20-31 mmol/L Anion Gap 9 5-15 Blood Urea Nitrogen 9 9-23 mg/dL Creatinine 0.89 0.700-1.30 mg/dL Glomerular Filtration Rate Calc 97 >90 mL/min BUN/Creatinine Ratio 10.1 10.0-20.0 Serum Glucose 112 H 74-106 mg/dL Calcium Level 9.0 8.7-10.4 mg/dL Lactic Acid Level 1.4 0.4-2.0 mmol/L Urine Color Yellow Yellow Urine Clarity Clear Clear Urine pH 5.5 5.0-9.0 Urine Specific [place] 1.050 H 1.001-1.035 Urine Protein Trace H Negative Urine Ketones Negative Negative Urine Blood Negative Negative /uL Urine Nitrite Negative Negative Urine Bilirubin Negative Negative Urine Urobilinogen Normal Negative mg/dL Urine Leukocyte Esterase Negative Negative /uL Urine RBC 2 0 - 3 /hpf Urine WBC 1 0 - 3 /hpf Urine Squamous Epithelial Cells Few <5 /hpf Urine Bacteria None seen None Seen /hpf Urine Mucus Few None Seen Urine Yeast (Budding) Occasional None Seen /hpf Urine Glucose Normal Normal mg/dL Urine Opiates Screen Pos NEGATIVE Urine Fentanyl Screen Pos NEGATIVE Urine Barbiturates Screen Neg NEGATIVE Urine Phencyclidine Screen Neg NEGATIVE Urine Amphetamines Screen Neg NEGATIVE Urine Benzodiazepines Screen Neg NEGATIVE Urine Cocaine Screen Neg NEGATIVE Urine Cannabinoids Screen Neg NEGATIVE Test 02/25/24 08:12 02/25/24 05:08 Range/Units Phosphorus Level 2.6 2.4-5.1 mg/dL Magnesium Level 2.1 1.6-2.6 mg/dL Triglycerides Level 89 < 150 mg/dL Cholesterol Level 111 < 200 mg/dL LDL Cholesterol 58 < 100 mg/dL HDL Cholesterol 44 40-59 mg/dL Thyroid Stimulating Hormone (TSH) 2.12 0.55-4.78 uIU/mL White Blood Count 10.5 4.4-10.8 10^3/uL Red Blood Count 4.56 4.5-5.90 10^6/uL Hemoglobin 14.9 13.5-17.5 g/dL Hematocrit 44.2 41.0-53.0 % Mean Corpuscular Volume 97.0 80.0-100.0 fL Mean Corpuscular Hemoglobin 32.8 H 28.0-32.0 pg Mean Corpuscular Hemoglobin Concent 33.8 32.0-36.0 g/dL Red Cell Distribution Width 14.0 11.8-14.3 % Platelet Count 216 140-450 10^3/uL Mean Platelet Volume 7.5 6.9-10.8 fL Neutrophils (%) (Auto) 65.8 37.0-80.0 % Lymphocytes (%) (Auto) 21.9 10.0-50.0 % Monocytes (%) (Auto) 11.3 0.0-12.0 % Eosinophils (%) (Auto) 0.8 0.0-7.0 % Basophils (%) (Auto) 0.2 0.0-2.0 % Neutrophils # (Auto) 6.9 1.6-8.6 10 ^3/uL Lymphocytes # (Auto) 2.3 0.4-5.4 10 ^3/uL Monocytes # (Auto) 1.2 0-1.3 10 ^3/uL Eosinophils # (Auto) 0.1 0-0.8 10 ^3/uL Basophils # (Auto) 0 0-0.2 10 ^3/uL Nucleated Red Blood Cells 0.0 % Prothrombin Time 11.7 9.3-11.8 sec Prothrombin Time INR 1.11 0.9-1.15 Activated Partial Thromboplast Time 63.7 H 24.5-34.5 SEC Hemoglobin A1c 5.9 H <5.7 % A1C Total Bilirubin 0.5 0.2-1.0 mg/dL Aspartate Amino Transferase (AST) 28 13-40 U/L Alanine Aminotransferase (ALT) 50 H 7-40 U/L Alkaline Phosphatase 43 L 46-116 U/L B-Type Natriuretic Peptide 33.52 0-100 pg/mL Total Protein 6.1 5.7-8.2 g/dL Albumin 4.0 3.2-4.8 g/dL Lipase 32 12-53 U/L Vitamin B12 Level 750 211-911 pg/mL Vitamin D 25-Hydroxy 55.1 30.0-100 ng/mL Microbiology Date/Time Source Procedure Growth Status 02/25/24 22:10 Nose MRSA Screen - Final Complete Assessment NSTEMI rule out coronary artery disease Acute on chronic decompensated HFmrEF, NYHA Class II, newly diagnosed Paroxysmal atrial fibrillation with rapid ventricular rate, Stage III, newly diagnosed Suspected history of supraventricular tachycardia Prediabetes, newly diagnosed Hypertension Obesity Plan/Recommendation We will continue the following plan/recommendations (Dr. Diaz): * Echocardiogram revealed EF 45% with abnormal septal motion and moderate LVH * Antiarrhythmic, initiate an amiodarone drip per protocol * Initiate GDMT for CHF, uptitrated as tolerated * Preload and afterload reduction, initiate Lasix * Initiate therapeutic Lovenox, transition to NOAC therapy the appropriate * [id number] Score 3. HAS-BLED Score 1. * Hold Lovenox the day of procedure * Single-antiplatelet therapy and lipid lowering agent * Monitor ECG changes and notify Scheduled for left cardiac catheterization and coronary angiogram with Dr. Diaz on 02/27/2024. All risks and benefits of the procedure were discussed with the patient who agrees to proceed with intervention. All questions answered. Thank you for allowing us to participate in this patient's care. Please call if you have any questions or concerns. This medical document was created using an electronic medical record system with voice recognition software and computerized dictation system. Although this document has been carefully reviewed, there might still be some phonetic and typographical errors. Occasional wrong-word or ``sound-alike substitutions may have occurred due to the inherent limitations of voice recognition software. These areas are purely typographical due to imperfections of the software programs and do not reflect any compromise in the patient's medical care. Please read the chart carefully and recognize, using context, where these substitutions have occurred. Plan discussed with: Patient, Other Date of Service: Feb 26, 2024 Billing Provider: CRISTI DIAZ MD Cardiology Common Codes: 24665-NIGPNHZ INP/OBS CARE (High) BHUMI MICHEL [facility] Feb 26, 2024 15:48
[2024-02-26] MEDS: AMIODARONE BOLUS KIT 100 ML IV ONE (16:08)
[2024-02-26] MEDS: AMIODARONE 450mg/250ml AE 250 ML IV SCH ×2 (16:29→21:31)
[2024-02-26] MEDS: SACUBITRIL-VALSARTAN 24mg/26mg TAB PO SCH (21:27)
[2024-02-26] MEDS: ACETAMINOPHEN 325 MG TAB PO PRN (21:29)
--- NOTE | 2024-02-26 21:54 | DVHPN2 ---
Progress Note - Dictate Date Seen: Feb 26, 2024 Medical Necessity Reason Pt with a Central, PICC or Fol: No Subjective Patient was seen at bedside Patient is feeling much better with no nausea vomiting no abdominal pain no chest pain or palpitations Patient showed me information that he was on a supplement called TMJ who side effects could mimic a heart attack Patient feels the supplement caused him to have his symptoms. He feels fine now Patient initially refused a cardiac catheterization as Patient has been evaluated by cardiology consult and also a 2nd opinion has been obtained vital signs Vital Sign Date Time Temp Pulse Resp B/P (MAP) Pulse Ox O2 Delivery O2 Flow Rate FiO2 02/26/24 20:00 Room Air* 0 21 02/26/24 17:44 98.6 90 18 136/91 (106) 96 98.6 Total Intake and Output 02/25/24 02/25/24 02/26/24 15:00 23:00 07:00 Intake Total 700 ml Balance 700 ml medications Current Medications Medications Dose Ordered Sig/Boaz Route Start Time Stop Time Status Last Admin Dose Admin Aspirin 81 mg DAILY PO 02/25/24 10:00 02/25/24 10:44 81 MG Atorvastatin Calcium 40 mg HS PO 02/25/24 22:00 02/26/24 21:28 40 MG Acetaminophen/ Hydrocodone Bitart 1 tab Q6HPRN PRN PO 02/25/24 06:00 Acetaminophen 650 mg Q6HPRN PRN PO 02/25/24 06:00 02/26/24 21:29 650 MG Ondansetron HCl 4 mg Q6HPRN PRN IV 02/25/24 06:00 Nitroglycerin 0.4 mg Q5MINP PRN SL 02/25/24 06:00 Morphine Sulfate 2 mg Q30M PRN IV 02/25/24 06:00 Pantoprazole Sodium 40 mg BID IV 02/25/24 22:00 02/26/24 21:27 40 MG Sucralfate 1 gm BID@0600,2200 PO 02/25/24 22:00 Metoprolol Succinate 25 mg DAILY PO 02/27/24 10:00 Amiodarone HCl 250 ml @ 16.667 mls/ hr Q15H IV 02/26/24 21:45 02/26/24 21:31 16.667 MLS/HR Enoxaparin Sodium 120 mg Q12H SC 02/27/24 05:00 Sacubitril/ Valsartan 1 tab BID PO 02/26/24 22:00 02/26/24 21:27 1 TAB Empaglifozin 10 mg DAILY PO 02/27/24 10:00 Spironolactone 25 mg DAILY PO 02/27/24 10:00 Furosemide 20 mg BIDD IV 02/27/24 06:00 objective General: NAD, AAOX3 Chest: lung donaldson clear to auscultation Heart: RRR, no murmur Abdomen: + epigastric tenderness to palpation, +BS laboratory and microbiology Laboratory Tests 02/26/24 04:34 02/25/24 05:08 Test 02/26/24 04:34 Range/Units Serum Glucose 112 H 74-106 mg/dL Problems(with codes): (1) Abdominal pain, epigastric (2) Non-STEMI (non-ST elevated myocardial infarction) (3) Diverticulosis (4) Hepatic steatosis Prognosis PLAN Scheduled for left cardiac catheterization and coronary angiogram with Dr. Diaz on 02/27/2024. Patient had elevated troponins which are trending down, he has ejection fraction of 45%; moderate LVH and abnormal septal motion Continue Protonix 40 mg p.o. daily We can give him a trial of Carafate1 g p.o. twice a day Patient was given my contact information to follow up with GI Services as an outpatient for elective panendoscopy once medically stabilized and cardiac cleared Plan discussed with: Patient, Other (Nurse) IHSAN DIAZ MD Feb 26, 2024 21:54
[2024-02-26] MEDS ORDERED: APIXABAN 5 MG TAB PO SCH (22:00)
[2024-02-27] VITALS (9 sets, daily range): BP systolic 122–154; BP diastolic 74–90; PULSE 88–98; RESP 18–23; TEMP 36.5; O2SAT 92–97
[2024-02-27] MEDS: ENOXAPARIN SOD 120 MG/0.8 ML SYRINGE SC SCH (05:00)
[2024-02-27 05:13] LABS: Basophils # (auto) 0 10 ^3/uL (0-0.2); Basophils % (auto) 0.3 % (0.0-2.0); Eosinophils # (auto) 0.2 10 ^3/uL (0-0.8); Eosinophils % (auto) 1.8 % (0.0-7.0); Hematocrit 48.3 % (41.0-53.0); Hemoglobin 16.3 g/dL (13.5-17.5); Lymphocytes # (auto) 1.5 10 ^3/uL (0.4-5.4); Lymphocytes % (auto) 12.7 % (10.0-50.0); Mean Corpuscular Hemoglobin 32.3 pg (28.0-32.0); Mean Corpuscular Hgb Conc. 33.7 g/dL (32.0-36.0); Mean Corpuscular Volume 96.1 fL (80.0-100.0); Monocytes # (auto) 1.3 10 ^3/uL (0-1.3); Monocytes % (auto) 11.2 % (0.0-12.0); Neutrophils # (auto) 8.9 10 ^3/uL (1.6-8.6); Nucleated Red Blood Cells % 0.1 %; Platelet Count (auto) 234 10^3/uL (140-450); Red Blood Cells 5.03 10^6/uL (4.5-5.90); Red Cell Distribution Width 13.8 % (11.8-14.3); White Blood Cell 12.1 10^3/uL (4.4-10.8)
[2024-02-27 05:16] LABS: Chloride 107 mmol/L (98-107); Potassium 3.9 mmol/L (3.5-5.1); Sodium 142 mmol/L (136-145)
[2024-02-27 05:17] LABS: Anion Gap 12 (5-15); Carbon Dioxide 23 mmol/L (20-31)
[2024-02-27 05:23] LABS: Blood Urea Nitrogen 12 mg/dL (9-23); Glucose 115 mg/dL (74-106)
[2024-02-27 05:26] LABS: INR 1.08 (0.9-1.15); Prothrombin Time 11.4 sec (9.3-11.8)
[2024-02-27] MEDS: FUROSEMIDE 20 MG/2 ML VIAL IV SCH (05:40)
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
[2024-02-27] MEDS: SPIRONOLACTONE 25 MG TAB PO SCH (09:30)
[2024-02-27] MEDS: EMPAGLIFLOZIN 10 MG TAB PO SCH (09:30)
[2024-02-27] MEDS: METOPROLOL SUCCINATE XL 50 MG TAB PO SCH (09:31)
[2024-02-27] MEDS: HEPARIN IN NS 1000Units/500mL 1,500 ML ONE (09:49)
[2024-02-27] MEDS: IODIXANOL 320MG/ML 100ML BTL IV ONE (09:49)
[2024-02-27] MEDS: fentaNYL CITRATE 100 MCG/2 ML VL ONE (09:50)
[2024-02-27] MEDS: HEPARIN SODIUM (PORCINE) 5000 UNITS/ML 1ML VIAL ONE (09:50)
[2024-02-27] MEDS: ANGIOMAX 250 MG VIAL IV ONE (09:50)
[2024-02-27] MEDS: VERAPAMIL 2.5MG/ML INJ 2ML VIAL IV ONE (09:50)
[2024-02-27] MEDS: MIDAZOLAM HCL 2MG/2ML 2ml VIAL (1mg/ml) ONE (09:51)
[2024-02-27] MEDS: LIDOCAINE 2%HCL (LOCAL ANESTH.) INJ 20ML MDV ONE (09:51)
[2024-02-27] MEDS: SODIUM CHL 0.9% 0 ML ONE (09:51)
--- NOTE | 2024-02-27 10:23 | DVHOP2 ---
Operative Report -Cardiology Report Details Date: 02/27/24 Preop Diagnosis: Non ST-elevation myocardial infarction Postop Diagnosis: Myocardial infarction with nonobstructive coronary artery disease, patient has mild disease to the LAD as well as the 1st obtuse marginal branch. For medical therapy. Surgeon: Antonia Rai MD Anesthesiologist: Conscious sedation using25 mcg of fentanyl as well as a mg IV midazolam. They were given under the direct supervision of myself the primary custom garment designer in the presence of the attending nurses. No complication was detected in the total of35 minutes the patient was observed for. Anesthesia: Local Consent: The patient was informed of the risks and benefits of the procedure. These include but are not limited to complications of anesthesia, postoperative infection, incomplete relief of symptoms, recurrence of symptoms, damage to blood vessels, nerves and tendons, deep venous thrombosis, pulmonary embolism and possible need for repeat surgery in the future. Indications for Surgery: This is a 63-year-old man who presented to the emergency room via EMS with a chief complaint of epigastric pain for three days. The patient complains of epigastric pain associated with intermittent episodes of dizziness and dyspnea on exertion prompting him to seek further medical attention. He presented to [facility] and transferred to this facility for HLOC given trending troponin levels. Denies chest pain, palpitations, diaphoresis, or syncopal events. Troponin levels peaked in the 700s ng/L. He underwent a 12 lead electrocardiogram revealing a sinus rhythm with PACs. At time of assessment, the patient was found in an atrial fibrillation rhythm in the 110s bpm. Denies a previous history of atrial fibrillation or following up with a custom garment designer. Reports an event of tachycardia with a HR up to the 200s bpm where he underwent pharmacological cardioversion 10 years ago. At that time he was advised to follow-up with a custom garment designer to rule out WPW. States he underwent follow-up work-up without findings of WPW. Other medical history includes hypertension, benign prostatic hyperplasia, and obesity. Name of Procedure Performed 1. Left heart catheterization with left ventricular end-diastolic pressure measurement. 2. Selective right and left coronary angiography utilizing right transradial approach. 3. Conscious sedation using25 mcg of fentanyl as well as a mg IV midazolam. Procedure Details Procedure Details: Procedure note and vascular access: After informed consent was obtained, risks, benefits, complications, and alternatives were discussed in detail with the patient who agrees to have the procedure done. At the beginning of the procedure the right wrist and the right groin area were prepped and draped in th e regular sterile fashion. Patient received a total of2 cc of 1% xylocaine to the right wrist area before a six Algerian sheath was placed without difficulty using modified Seldinger technique. Conscious sedation obtained using25 mcg of fentanyl as well as1 mg IV midazolam under direct supervision of the primary custom garment designer and the attending nurses. Thereafter a tiger five Algerian catheter was advanced over the wire to the aortic arch and from there to the aortic root. Patient received a total of 2.5 mg of verapamil as well as 100 mcg of nitroglycerin intra-arterially to prevent vasospasm. A total of 3000 of heparin was also given once the wire crossed the aortic arch. Findings were as follows: 1. Left heart catheterization with left ventricular end-diastolic pressure measurement: With the help of a tiger five Algerian catheter as well as a J-tip wire we were a ble to cross the aortic valve and measured left ventricular end-diastolic pressure which was normal at 6 mm of mercury. There was no gradient across the aortic valve on the pullback. 2. Selective right and left coronary angiography utilizing right transradial approach: 1. The right coronary artery comes off the right coronary cusp it is a large dominant system it bifurcates distally into large posterior descending artery as well as large posterolateral branches. There is mild irregularity of the proximal part of the LAD without significant stenosis. 2. The left main is widely patent without atherosclerotic plaquing, it gives rise to two branches of the left anterior descending artery as well as medium- sized left circumflex vessel. 3. Left anterior descending artery is a large system with transapical course, gives rise to two large diagonal branches, at the proximal part of the LAD there is mild irregularity with mild calcification and mild atherosclerotic plaquing of 30%. No discrete stenosis was noted across the course of the LAD vessel. 4. Left circumflex artery is medium-sized vessels it gives rise to two large obtuse marginal branches, in the 1st obtuse marginal branches there is mid moderate disease at 50% stenosis, but no other significant stenosis was noted in the territory of the left circumflex vessel. Impression and plan: 1. Patient presentation is likely reflective of [place] with nonobstructive coronary artery disease. 2. Patient will qualify for aggressive secondary prevention protocol with a high-dose statin to achieve LDL guarded target of less than 50 mg of per dL. 3. Other risk factor modification is warranted including controlling blood sugar he has diabetes and blood pressure. 4. Left ventricular systolic function need to be assessed by echocardiography, and goal-directed medical therapy need to be tailored based on patient ejection fraction. Condition Good [facility] Clinical Frailty Scale [facility] Clinical Frailty Scale: Well Dominance Dominance: Right Disposition ANTONIA RAI MD Feb 27, 2024 10:23
[2024-02-27] MEDS ORDERED: ATOR20TA50 PO (12:50)
[2024-02-27] MEDS ORDERED: PANT40TA2 PO (12:50)
[2024-02-27] MEDS ORDERED: APIX5TAB PO (12:50)
[2024-02-27] MEDS ORDERED: EMPA1TAB PO (12:50)
[2024-02-27] MEDS ORDERED: METO-6 PO (12:50)
[2024-02-27] MEDS ORDERED: ENAL1TAB47 PO (12:50)
--- NOTE | 2024-02-27 12:57 | DVHDS2 ---
Discharge Summary Date of Admission Feb 25, 2024 at 06:00 Date of Discharge: Feb 27, 2024 Labs/Diagnostic Data: Laboratory Results Test 02/27/24 04:24 02/26/24 04:39 02/25/24 09:13 02/25/24 09:00 White Blood Count 12.1 10^3/uL (4.4-10.8) Red Blood Count 5.03 10^6/uL (4.5-5.90) Hemoglobin 16.3 g/dL (13.5-17.5) Hematocrit 48.3 % (41.0-53.0) Mean Corpuscular Volume 96.1 fL (80.0-100.0) Mean Corpuscular Hemoglobin 32.3 pg (28.0-32.0) Mean Corpuscular Hemoglobin Concent 33.7 g/dL (32.0-36.0) Red Cell Distribution Width 13.8 % (11.8-14.3) Platelet Count 234 10^3/uL (140-450) Mean Platelet Volume 7.7 fL (6.9-10.8) Neutrophils (%) (Auto) 74.0 % (37.0-80.0) Lymphocytes (%) (Auto) 12.7 % (10.0-50.0) Monocytes (%) (Auto) 11.2 % (0.0-12.0) Eosinophils (%) (Auto) 1.8 % (0.0-7.0) Basophils (%) (Auto) 0.3 % (0.0-2.0) Neutrophils # (Auto) 8.9 10 ^3/uL (1.6-8.6) Lymphocytes # (Auto) 1.5 10 ^3/uL (0.4-5.4) Monocytes # (Auto) 1.3 10 ^3/uL (0-1.3) Eosinophils # (Auto) 0.2 10 ^3/uL (0-0.8) Basophils # (Auto) 0 10 ^3/uL (0-0.2) Nucleated Red Blood Cells 0.1 % Prothrombin Time 11.4 sec (9.3-11.8) Prothrombin Time INR 1.08 (0.9-1.15) Activated Partial Thromboplast Time 31.0 SEC (24.5-34.5) Sodium Level 142 mmol/L (136-145) Potassium Level 3.9 mmol/L (3.5-5.1) Chloride Level 107 mmol/L (98-107) Carbon Dioxide Level 23 mmol/L (20-31) Anion Gap 12 (5-15) Blood Urea Nitrogen 12 mg/dL (9-23) Creatinine 0.92 mg/dL (0.700-1.30) Glomerular Filtration Rate Calc 94 mL/min (>90) BUN/Creatinine Ratio 13.0 (10.0-20.0) Serum Glucose 115 mg/dL (74-106) Calcium Level 9.0 mg/dL (8.7-10.4) Troponin I High Sensitivity 341 ng/L (</=54) Lactic Acid Level 1.4 mmol/L (0.4-2.0) Urine Color Yellow (Yellow) Urine Clarity Clear (Clear) Urine pH 5.5 (5.0-9.0) Urine Specific Hall 1.050 (1.001-1.035) Urine Protein Trace (Negative) Urine Ketones Negative (Negative) Urine Blood Negative /uL (Negative) Urine Nitrite Negative (Negative) Urine Bilirubin Negative (Negative) Urine Urobilinogen Normal mg/dL (Negative) Urine Leukocyte Esterase Negative /uL (Negative) Urine RBC 2 /hpf (0 - 3) Urine WBC 1 /hpf (0 - 3) Urine Squamous Epithelial Cells Few /hpf (<5) Urine Bacteria None seen /hpf (None Seen) Urine Mucus Few (None Seen) Urine Yeast (Budding) Occasional /hpf (None Urine Glucose Normal mg/dL (Normal) Urine Opiates Screen Pos (NEGATIVE) Urine Fentanyl Screen Pos (NEGATIVE) Urine Barbiturates Screen Neg (NEGATIVE) Urine Phencyclidine Screen Neg (NEGATIVE) Urine Amphetamines Screen Neg (NEGATIVE) Urine Benzodiazepines Screen Neg (NEGATIVE) Urine Cocaine Screen Neg (NEGATIVE) Urine Cannabinoids Screen Neg (NEGATIVE) Test 02/25/24 08:12 02/25/24 05:08 Phosphorus Level 2.6 mg/dL (2.4-5.1) Magnesium Level 2.1 mg/dL (1.6-2.6) Triglycerides Level 89 mg/dL (< 150) Cholesterol Level 111 mg/dL (< 200) LDL Cholesterol 58 mg/dL (< 100) HDL Cholesterol 44 mg/dL (40-59) Thyroid Stimulating Hormone (TSH) 2.12 uIU/mL (0.55-4.78) Hemoglobin A1c 5.9 % A1C (<5.7) Total Bilirubin 0.5 mg/dL (0.2-1.0) Aspartate Amino Transferase (AST) 28 U/L (13-40) Alanine Aminotransferase (ALT) 50 U/L (7-40) Alkaline Phosphatase 43 U/L (46-116) B-Type Natriuretic Peptide 33.52 pg/mL (0-100) Total Protein 6.1 g/dL (5.7-8.2) Albumin 4.0 g/dL (3.2-4.8) Lipase 32 U/L (12-53) Vitamin B12 Level 750 pg/mL (211-911) Vitamin D 25-Hydroxy 55.1 ng/mL (30.0-100) Other Laboratory Tests 02/27/24 04:24 Brief Hx & Hospital Course: This is a 63-year-old gentleman with a hypertensive heart disease came to [facility] Friday with complaints of right-sided abdominal pain. Described as as mainly in the epigastric/right upper quadrant region. Patient was apparently what he thinks ate some "bad" food on Friday. Friday he had some discomfort intermittently and yesterday he has pain was more constant therefore came to ER for further evaluation. In the ER patient was CT abdomen pelvis showed diverticulosis without any acute pathology. However he is cardiac markers troponin the elevated significantly. Therefore he was transferred to [facility] for cardiac evaluation and further management as appropriate. Currently patient indeed has a pain-free. Patient denied any associated nausea vomiting headache dizziness or lightheadedness. Denied any diarrhea or blood in stool. All other review of system to be normal. He is admitted and evaluated by career development manager. Received treatment for his elevated troponins with a probable non ST elevation MO. patient is subsequently underwent a coronary angiogram and recommended medical therapy for mild coronary artery disease. Patient is also noted to be in paroxysmal atrial fibrillation in the hospital therefore he is recommended to be on anticoagulation for stroke prevention. Patient's blood pressure and heart rate is controlled with the beta blockers. Patient is feeling better. Pain-free. Having had necessary workup and evaluation is felt he could be safely discharged home. I have talked patient on multiple occasions during this hospitalization at length as well as his significant other at bedside regarding hospital diagnosis, procedure he had done with results, discharge medications, side effects of medications including bleeding risk versus stroke prevention from anticoagulation, discharge instructions and follow-up plan of care. Patient is advised to be compliant with his medications as he is prescribed given his cardiac issues and to have a close follow up with his primary care physician and career development manager. Patient and family verbalized understanding of this, verbalized understanding of his hospital course and care plan he received as well as agree with the discharge follow-up plan of care as mentioned. Operations or Procedures Operative Report -Cardiology Report Details Date: 02/27/24 Preop Diagnosis: Non ST-elevation myocardial infarction Postop Diagnosis: Myocardial infarction with nonobstructive coronary artery disease, patient has mild disease to the LAD as well as the 1st obtuse marginal branch. For medical therapy. Surgeon: Antonia Rai MD Anesthesiologist: Conscious sedation using25 mcg of fentanyl as well as a mg IV midazolam. They were given under the direct supervision of myself the primary career development manager in the presence of the attending nurses. No complication was detected in the total of35 minutes the patient was observed for. Anesthesia: Local Consent: The patient was informed of the risks and benefits of the procedure. These include but are not limited to complications of anesthesia, postoperative infection, incomplete relief of symptoms, recurrence of symptoms, damage to blood vessels, nerves and tendons, deep venous thrombosis, pulmonary embolism and possible need for repeat surgery in the future. Indications for Surgery: This is a 63-year-old man who presented to the emergency room via EMS with a chief complaint of epigastric pain for three days. The patient complains of epigastric pain associated with intermittent episodes of dizziness and dyspnea on exertion prompting him to seek further medical attention. He presented to [facility] and transferred to this facility for HLOC given trending troponin levels. Denies chest pain, palpitations, diaphoresis, or syncopal events. Troponin levels peaked in the 700s ng/L. He underwent a 12 lead electrocardiogram revealing a sinus rhythm with PACs. At time of assessment, the patient was found in an atrial fibrillation rhythm in the 110s bpm. Denies a previous history of atrial fibrillation or following up with a career development manager. Reports an event of tachycardia with a HR up to the 200s bpm where he underwent pharmacological cardioversion 10 years ago. At that time he was advised to follow-up with a career development manager to rule out WPW. States he underwent follow-up work-up without findings of WPW. Other medical history includes hypertension, benign prostatic hyperplasia, and obesity. Name of Procedure Performed 1. Left heart catheterization with left ventricular end-diastolic pressure measurement. 2. Selective right and left coronary angiography utilizing right transradial approach. 3. Conscious sedation using25 mcg of fentanyl as well as a mg IV midazolam. Condition at Discharge: Stable Final Diagnosis/Problems List Myocardial infarction with nonobstructive coronary artery disease, patienthas mild disease to the LAD as well as the 1st obtuse marginal branch.For medical therapy. Secondary Diagnosis: Paroxysmal atrial fibrillation Discharge Disposition: Home Discharge Instruct/Medications Diet: Consistent carbohydrate, Cardiac 2g Na,low cholest Activity: No Restrictions, As Tolerated Follow Up/Referral: Your primary care doctor in two weeks and career development manager Dr. Sanderson with your Medical group 3-4 weeks. Medications: To take and continue As prescribed and per discharge med reconciliation list. New Medications: Apixaban Base (Eliquis) 5 Mg Tab 5 MG PO BID, #90 TAB Pantoprazole Sodium Sesquihydr (Protonix) 40 Mg Tab 40 MG PO DAILY, #30 TAB Atorvastatin Calcium (Atorvastatin Calcium) 20 Mg Tab 20 MG PO HS, #90 TAB Empagliflozin (Jardiance) 10 Mg Tab 10 MG PO DAILY, #30 TAB Metoprolol Succinate (Toprol Xl) 50 Mg Tab 50 MG PO DAILY, #60 TAB Continued Medications: Cyclobenzaprine Hcl (Cyclobenzaprine Hcl) 10 Mg Tab 1 TAB PO DAILY for 30 Days, #30 Enalapril Maleate (Enalapril Maleate) 10 Mg Tab 1 TAB PO DAILY for 90 Days, #90 TAB (This prescription has been renewed) Latanoprost (Latanoprost) 0.005 % Melba 1 DROP RIGHTEYE QPM for 100 Days, #5 Meloxicam (Meloxicam) 7.5 Mg Tab 1 TAB PO DAILY for 90 Days, #90 Tamsulosin Hcl (Tamsulosin Hcl) 0.4 Mg Cap 1 CAP PO DAILY for 90 Days, #90 Discontinued Medications: Amlodipine Besylate (Amlodipine Besylate) 10 Mg Tab 1 TAB PO DAILY for 90 Days, #90 Discharge Statement: "Patient was advised to return to the ER or call 911 if any headaches, dizziness, shortness of breath, chest pain, abdominal pain, bleeding, fevers, or worsening of medical condition. Patient was counseled about treatment plan, medications, possible side effects, patientverbalized understanding. All questions were answered to the best of my ability. This discharge took greater then 30 minutes in planning, reviewing documentation, counseling the patient, and discussing with other team members." ASSESSMENT ASSESSMENT Assessment Myocardial infarction with nonobstructive coronary artery disease, patienthas mild disease to the LAD as well as the 1st obtuse marginal branch.For medical therapy. ELO MALLOY MD Feb 27, 2024 12:57
[2024-02-27] MEDS ORDERED: APIXABAN 5 MG TAB PO SCH (22:00)
[2024-02-27] MEDS ORDERED: AMIODARONE HCL 200 MG TAB PO SCH (22:00)
[2024-02-28] MEDS ORDERED: FUROSEMIDE 20 MG TAB PO SCH (10:00)
== END 2024-02-27 14:10 | disposition home or self-care (01) | DRG 190 ==
LOC: EDBD 04:24 → ER 04:24 → TELE-WESTW 06:00 → TELE 06:00 → TELE-WESTW 17:55
PROVIDERS: ADMIT Nurse Practitioner Family; ATTEND Hospitalist
PROC: 4A023N7 Measurement of Cardiac Sampling and Pressure, Left Heart, Percutaneous Approach (ICD-10-PCS; principal; 2024-02-27)
PROC: B210YZZ Fluoroscopy of Single Coronary Artery using Other Contrast (ICD-10-PCS; 2024-02-27)
DX: I21.4 Non-ST elevation (NSTEMI) myocardial infarction (principal); I50.23 Acute on chronic systolic (congestive) heart failure; I11.0 Hypertensive heart disease with heart failure; K76.0 Fatty (change of) liver, not elsewhere classified; E66.01 Morbid (severe) obesity due to excess calories; Z68.33 Body mass index [BMI] 33.0-33.9, adult; I48.0 Paroxysmal atrial fibrillation; N40.0 Benign prostatic hyperplasia without lower urinary tract symptoms; I25.10 Atherosclerotic heart disease of native coronary artery without angina pectoris; R73.03 Prediabetes; Z82.49 Family history of ischemic heart disease and other diseases of the circulatory system; Z88.8 Allergy status to other drugs, medicaments and biological substances
CPT/HCPCS: 36415; 71045; 76700; 80048; 80053; 80061; 80307; 81001; 82306; 82607; 83036; 83605; 83690; 83735; 83880; 84100; 84443; 84484; 85025; 85610; 85730; 87081; 93005; 93306; 93458; 96365; 96375; 99152; 99291; G0378; J2250; J2405; J2470; Q9967